=== PATIENT | female | born 2005 | race Two or more races ===

== ENCOUNTER 2024-10-15 11:11 | Emergency (ER) | payer MEDICAID, SELFPAY ==
[2024-10-15 11:33] VITALS: BP 114/68; PULSE 78; RESP 18; TEMP 36.8; O2SAT 98; BMI 27.5
--- NOTE | 2024-10-15 11:54 | EDNOTE_ITS ---
<Statement entered by Hailey Weathers MD - 10/15/24 16:02> As co-signing physician, I was present and available for consult prn. I concur with the plan and care as documented by the midlevel provider. ED Abdominal Pain RME/HPI General Chief Complaint: Abdominal Pain Stated complaint: ABD PAIN X AM; 10 WKS Time seen by provider: 10/15/24 11:21 Arrival date/time: 10/15/24 11:11 RME / HPI RME / HPI narrative: 18-year-old female patient with no significant past medical history, 2 para 1, about 10 weeks , came in for evaluation regarding pelvic pain. Onset of symptoms since earlier today as pelvic pain, severity 7 out of 10 nonradiating. Patient denies any vaginal spotting, fever, dysuria, vomiting, diarrhea or constipation. Denies any other complaints no medications taken sergio or to arrival. Related Data Home Medications ?Medication ?Instructions ?Recorded ?Confirmed prenat.vits,lucy,wys-sdge-vgobd 1 tab PO QDAY 03/25/22 06/26/22 Allergies Allergy/AdvReac Type Severity Reaction Status Date / Time No Known Allergies Allergy Verified 10/15/24 11:14 Review of Systems Review of Systems Narrative Review of Systems: Review of system reviewed and within normal limits except mentioned in HPI ED Exam Narrative Physical exam: VITAL SIGNS: Reviewed. GENERAL APPEARANCE: Alert and interactive, follows commands, no acute distress, HEAD AND FACE: Non-traumatic. ENT: PERRL, pink conjunctivitis, eyelid no trauma, Mucous membrane moist. NECK: Supple, nontender, no nuchal rigidity. CHEST: No tenderness, no crepitus, no paradoxical movement, no retractions. LUNGS: Clear, well ventilated, symmetric, no rales, no wheezing, no ronchi, no stridor, good breath sounds bilaterally. HEART: Regular rate, regular rhythm, no murmur, no gallops. ABDOMEN: Soft, positive bowel sounds, nondistended, no guarding, nontender, no rebound, no masses, RECTAL: Deferred. GENITAL: Pelvic tenderness, NEUROLOGICAL: Gross motor function intact sensory function intact, Appropriate for age. MUSCULOSKELETAL: low back nontender, full range of motion. EXTREMITIES: Nontender, full range of motion. SKIN: Color pink, dry, no rash, no lacerations, no abrasions, no contusions. LYMPHATICS: Deferred. Course Quality Measures none Orders Category Date Time Status US OB <= 14 weeks fetus Stat Exams 10/15/24 11:54 Completed ABO/RH Type Stat Lab 10/15/24 12:43 Completed Basic Metabolic Panel Stat Lab 10/15/24 12:43 Completed Beta HCG,Quantitative Stat Lab 10/15/24 12:43 Completed CBC Stat Lab 10/15/24 12:43 Completed Urinalysis Stat Lab 10/15/24 12:45 Completed Vital Signs Vital signs: Vital Signs Temperature 98.3 F 10/15/24 11:33 Pulse Rate 78 10/15/24 11:33 Respiratory Rate 18 10/15/24 11:33 Blood Pressure 114/68 10/15/24 11:33 Pulse Oximetry (%) 98 10/15/24 11:33 Oxygen Delivery Method Room Air 10/15/24 11:33 Abdominal Pain MDM MDM Narrative MDM Narrative:: 18-year-old female patient with no significant past medical history, 2 para 1, about 10 weeks , came in for evaluation regarding pelvic pain. Onset of symptoms since earlier today as pelvic pain, severity 7 out of 10 nonradiating. Patient denies any vaginal spotting, fever, dysuria, vomiting, diarrhea or constipation. Denies any other complaints no medications taken prior to arrival. Laboratory couple came back unremarkable urinalysis no UTI ultrasound showed single live intrauterine gestation about 13 weeks. With a small subchorionic hemorrhage results discussed with the patient. No bleeding prior to discharge. Patient is having no complaints prior to discharge. Patient data External records reviewed:: None Clinical information provided by:: patient and family Social determinants that could affect healthcare access:: none Patient has the following chronic illnesses:: None How is presenting disease/condition affected by chronic disease/condition?: no chronic disease Evaluation data The following diagnostics were reviewed and interpreted by me:: lab results and radiology exam(s) Lab and/or radiology exams considered but not ordered:: None Interpretation Summary: See results in MDM Medications / Prescriptions Medications or Prescriptions considered but not ordered:: None Medication administrations:: None Consultations Consultation(s) initiated? (list below): No Diagnosis Differential diagnosis abdominal pain: abdominal pain and other (Pelvic pain, ) Most likely diagnosis given after review of the tests above:: Pelvic pain, Admission Indicated Admission indicated?: not indicated Admission Request Was there a request for admission?: No Disposition Plan Disposition Plan: Discharge Discharge Attestation Discharge Attestation: The patient and all family members were given an opportunity to ask questions and understood the discharge instructions. Discharge instructions specifically effects, indications for sooner follow up or return to the emergency department, and the expected course of current diagnosis. Patient condition: Stable Discharge Plan Plan Patient Disposition: HOME (Self Care) Disposition Comment: Stable Prescriptions/Referrals Prescriptions/Med Rec: No Action Vitamin Tablet 1 tab PO QDAY Referrals: No Primary/Family,Physician [Primary Care Provider] - In 1 week Problem List Clinical Impression: Pelvic pain, Patient/Caregiver Discharge Instructions Discharge Activity: activity as tolerated Education Materials: ED Pelvic Pain, Unknown Cause Additional Instructions: Thank you for the opportunity for serving you today. You are stable for discharged . You are advised to: Follow-up with your SUPERVISOR OVENS in 1 to 2 days Return to ED for worsening of symptoms Increase oral fluids Print Language: Yakut Stand Alone Forms: Trudy Award Info., Patient Portal Info Letter CAIT/REMEDIOS Supervising Physician BATOOL Supervising Physician: MD Jasiel
--- NOTE | 2024-10-15 11:54 | XR_ITS ---
Examination: Complete OB ultrasound, less than 14 weeks, transabdominal Date and time of exam: October 07, 2024 at 1220 hours INDICATIONS: Onset pelvic pain today Technique: Obstetrical ultrasound images less than 14 weeks performed via transabdominal imaging Findings: A normal shaped single intrauterine gestation is present in the uterus. pole 6.7 cm corresponds to 13 weeks 0 day gestational age Cardiac motion 153 BPM Subchorionic hemorrhage 24 x 8 x 21 mm Ultrasonographic survey of visible structures unremarkable. Amniotic fluid volume appears appropriate for this estimated gestational age. Right ovary 2.8 cm arterial flow Left ovary 2.5 cm arterial flow, sodium 12 mm cyst IMPRESSION:. Viable intrauterine gestation 13 weeks 0 days Recommend short-term follow-up transvaginal pelvic sonography, given the subchorionic hemorrhage
[2024-10-15 12:52] LABS: Collection Type, Urine Clean Catch
[2024-10-15 12:56] LABS: Basophils % (Auto) 0 % (0-2.5); Eosinophils # (Auto) 0.1 Thou/mm3 (0.0-0.5); Eosinophils % (Auto) 1 % (0-10); Hemoglobin 13.4 g/dL (12.0-16.0); Immature Granulocytes % (Auto) 0 % (0-0); Immature Granulocytes Auto 0.03 Thou/mm3 (0.00-0.00); Lymphocytes # (Auto) 2.4 Thou/mm3 (1.0-5.0); Lymphocytes % (Auto) 24 % (10-50); Mean Corpuscular HGB Conc 34.4 g/dl (31.0-37.0); Mean Corpuscular Hemoglobin 27.5 pg (25.0-35.0); Mean Corpuscular Volume 80 fL (80-100); Monocytes # (Auto) 0.6 Thou/mm3 (0.0-0.8); Monocytes % (Auto) 6 % (0-12); Neutrophils # (Auto) 6.7 Thou/mm3 (1.8-7.7); Neutrophils % (Auto) 69 % (37-80); Nucleated Red Blood Cell % 0 /100 WBC (0); Platelet Count 245 Thou/mm3 (140-440); RDW Standard Deviation 44.2 fL (36.4-46.3); Red Blood Count 4.87 Miln/mm3 (4.00-5.20); White Blood Count 9.7 Thou/mm3 (4.5-11.0)
[2024-10-15 13:03] LABS: Bacteria,Urine Rare; Bilirubin,Urine Negative (Negative); Blood,Urine Negative (Negative); Color,Urine Lt-Yellow (Lt Yel-Yel); Glucose, Urine Negative (Negative); Ketones,Urine Negative (Negative); Leukocyte Esterase,Urine Positive (Negative); Nitrite,Urine Positive (Negative); PH,Urine 7.5 (5.0-7.0); Protein,Urine Negative (Neg - Trace); RBC,Urine 3 /hpf (0-3); Specific Gravity,Urine 1.016 (1.001-1.035); Squamous Epithelial Cell,Urine 3 /hpf (0-5); Urobilinogen,Urine Negative mg/dL (0.0-1.0); WBC,Urine 3 /hpf (0-5)
[2024-10-15 13:17] LABS: Anion Gap 9 (7-16); BUN/Creatinine Ratio 10 Ratio (12-20); Blood Urea Nitrogen < 5 mg/dL (9-23); Calcium 9.2 mg/dL (8.3-10.6); Chloride 106 mMol/L (98-107); Creatinine (Component) 0.5 mg/dL (0.6-1.3); Estimated Creatinine Clearance 163.9 mL/min (>60); Glucose 87 mg/dL (74-106); Osmolality,Calculated 268 (275-295); Potassium 4.6 mMol/L (3.4-5.1); Sodium 136 mMol/L (136-145); eGFR > 60 See Note
[2024-10-15 13:31] LABS: Clarity,Urine Hazy (Clear/Hazy)
[2024-10-15 15:18] LABS: Beta HCG,Quantitative 28205 mIU/mL (<5.0)
== END 2024-10-15 16:35 | disposition home or self-care (01) ==
PROVIDERS: Nurse Practitioner Family; Emergency Provider Emergency Medicine
DX: O26.891 Other specified pregnancy related conditions, first trimester (principal); O20.8 Other hemorrhage in early pregnancy; R10.2 Pelvic and perineal pain; Z3A.13 13 weeks gestation of pregnancy
CPT/HCPCS: 36415; 76801; 80048; 81001; 84702; 85025; 86900; 86901; 99284

== ENCOUNTER 2025-03-22 21:01 | Observation (INO) | payer MEDICAID, SELFPAY ==
[2025-03-22 21:13] VITALS: BMI 32.3
[2025-03-22 21:18] VITALS: BP 118/79; PULSE 102; RESP 18; RESP 97; TEMP 36.7
[2025-03-22 21:19] VITALS: BP 118/79; PULSE 102
[2025-03-22 21:31] VITALS: BP 99/55; PULSE 77
[2025-03-22 21:38] VITALS: BP 113/60; PULSE 92
[2025-03-22] MEDS: ACETAMINOPHEN 500 MG TABLET 1000 MG PO (21:46)
== END 2025-03-22 23:10 | disposition home or self-care (01) ==
PROVIDERS: Admitting Provider Obstetrics & Gynecology; Visit Provider Obstetrics & Gynecology
DX: O26.893 Other specified pregnancy related conditions, third trimester (principal); Z3A.36 36 weeks gestation of pregnancy; R51.9 Headache, unspecified
CPT/HCPCS: 59025; 59899; G0378; A9270

== ENCOUNTER 2025-04-15 13:40 | Observation (INO) | payer MEDICAID, SELFPAY ==
[2025-04-15] VITALS (16 sets, daily range): BP systolic 108; BP diastolic 76; PULSE 70–102; RESP 20–97; TEMP 36.7; O2SAT 95–97; BMI 35.4
--- NOTE | 2025-04-15 14:17 | XR_ITS ---
Examination: Complete OB ultrasound greater than 14 weeks Date and time of exam: April 09 12/25/2024, 1505 hours INDICATIONS: Decreased movement beginning 2 days ago, labor evaluation Findings: Viable intrauterine single fetus with single amniotic sac presentation cephalic spine maternal right Cardiac motion 136 BPM Placenta fundal posterior grade 2 Umbilical cord insertion seen Amniotic fluid index 6.2 cm Cervix 3.5 cm closed Ovaries obscured by the fetus. Composite estimated gestational age based on BPD, head circumference, abdominal circumference, femur length is 37 weeks 3 days Estimated weight 3257.5 g. Survey of intracranial anatomy, spinal anatomy, abdominal anatomy, four-chamber heart performed with no abnormalities identified. Impression: Viable intrauterine gestation cephalic presentation.
--- NOTE | 2025-04-15 14:17 | XR_ITS ---
Examination: Biophysical profile, ultrasound Date and time of exam: April 15, 2025 1524 hours INDICATIONS: Decreased movement beginning 2 days ago, labor evaluation Technique: Multiple transabdominal sonographic images of the pelvis abdomen obtained. Attention is directed to the breathing movement, gross body movement, amniotic fluid volume and tone. Findings: Amniotic fluid index 6.8 cm Total biophysical profile is 8 of 8. breathing movement is 2. Gross body movement is 2. tone is 2. Qualitative amniotic fluid volume is 2 Impression: Biophysical profile is 8 of 8.
== END 2025-04-15 16:33 | disposition home or self-care (01) ==
PROVIDERS: Admitting Provider Obstetrics & Gynecology; Visit Provider Obstetrics & Gynecology
DX: O36.8130 Decreased fetal movements, third trimester, not applicable or unspecified (principal); Z3A.40 40 weeks gestation of pregnancy
CPT/HCPCS: 59025; 59899; 76805; 76819

== ENCOUNTER 2025-04-20 10:39 | Inpatient (IN) | payer MEDICAID, SELFPAY ==
[2025-04-20] VITALS (78 sets, daily range): BP systolic 79–147; BP diastolic 6–85; PULSE 67–110; RESP 16–98; TEMP 36.6–37.1; O2SAT 78–100; BMI 32.5
[2025-04-20 11:57] LABS: Basophils # (Auto) 0.0 Thou/mm3 (0.0-0.2); Basophils % (Auto) 0 % (0-2.5); Eosinophils # (Auto) 0.0 Thou/mm3 (0.0-0.5); Eosinophils % (Auto) 0 % (0-10); Hematocrit 40.8 % (36.0-46.0); Hemoglobin 14.0 g/dL (12.0-16.0); Immature Granulocytes Auto 0.03 Thou/mm3 (0.00-0.00); Lymphocytes # (Auto) 3.0 Thou/mm3 (1.0-4.8); Lymphocytes % (Auto) 27 % (10-50); Mean Corpuscular HGB Conc 34.3 g/dl (31.0-37.0); Mean Corpuscular Hemoglobin 28.9 pg (25.0-35.0); Mean Corpuscular Volume 84 fL (80-100); Monocytes # (Auto) 0.6 Thou/mm3 (0.0-0.8); Monocytes % (Auto) 6 % (0-12); Neutrophils # (Auto) 7.3 Thou/mm3 (1.8-7.7); Neutrophils % (Auto) 67 % (37-80); Nucleated Red Blood Cell # 0.00 Thou/mm3 (0.00-0.00); Nucleated Red Blood Cell % 0 /100 WBC (0); Platelet Count 230 Thou/mm3 (140-440); RDW Standard Deviation 48.0 fL (36.4-46.3); Red Blood Count 4.85 Miln/mm3 (4.00-5.20); White Blood Count 11.0 Thou/mm3 (4.5-11.0)
[2025-04-20 12:41] LABS: Syphilis Nonreactive (Nonreactive)
--- NOTE | 2025-04-20 12:44 | ESHP_ITS ---
Documentation for date of: 04/20/25 OB Labor/Induct. HPI History of Present Illness Chief complaint: Labor and ruptured membranes at 0500 today : 2 Para: 1 Term pregnancies: 1 pregnancies: 0 Living children: 1 History of Abortions: Spontaneous and Elective: 0 History of Vaginal deliveries: 0 History of sections: No History of : No RADHA: 04/15/25 Gestational Age (weeks): 40 Gestational Age (days): 5 History of present illness: Patient is a 19-year-old -0-0-1 with all care uncomplicated with [facility] who presented to triage 5 cm dilated and 40-5/7 weeks. She was admitted in labor. She had broken her bag water this morning at 5 AM and reported clear fluids. Patient was found to be grossly ruptured. History of Present Dating criteria: LMP confirmed by 2nd trimester US Adequate Care: Yes Ultrasounds: normal mid trimester US Obstetrical complications: none Medical complications: none Labs Maternal Blood Type: O Pos Labs: Negative: RPR, Hepatitis B, Rubella Titre, HIV, Chlamydia, Gonorrhea and Group Beta Strep and Unknown: Herpes Type 1 and Herpes Type 2 Review of Systems Constitutional Comments: Patient reports painful contractions. No loss of fluids or vaginal bleeding. Past Medical History Surgical History SURGICAL: Negative Section Past Medical History Comments PMH COMMENT: No significant past medical history including asthma diabetes hypertension Past vaginal delivery in 2021 Meds Home Medications and Allergies Home Medications ?Medication ?Instructions ?Recorded ?Confirmed ?Type prenat.vits,lucy,lto-avje-kefke 1 tab PO QDAY 03/25/22 04/20/25 History Allergies Allergy/AdvReac Type Severity Reaction Status Date / Time No Known Allergies Allergy Verified 04/20/25 11:59 OB Exam Physical Exam Vital signs: Temp Pulse Resp BP Pulse Ox 98.0 F 93 16 122/83 100 04/20/25 10:40 04/20/25 12:44 04/20/25 10:40 04/20/25 12:44 04/20/25 12:41 Detailed Labor and Delivery Exam Effacement (%): 80 Cervix position: mid station: -2 Consistency: medium Presentation: Vertex Membranes: intact and ruptured monitor accelerations: 15x15 monitor decelerations: None skilled nursing variability: Moderate (11-25) Tachysystole: No Contraction intensity: Moderate OB Results Labs 04/20/25 11:25 Labs: Short CBC 04/20/25 Range/Units 11:25 WBC 11.0 (4.5-11.0) Thou/mm3 Hgb 14.0 (12.0-16.0) g/dL Hct 40.8 (36.0-46.0) % Plt Count 230 (140-440) Thou/mm3 OB Assessment & Plan Assessment and Plan (1) Supervision of high risk in third trimester: Status: Acute Assessment and plan: Admit patient. Okay for epidural. Pitocin augmentation if needed. Additional Plan Induction method: none Plan: anticipate NVD
[2025-04-20] MEDS: BENZO/LANO/ALOE (Dermoplast) 60 GM CAN 1 SPRAY TOP (13:45)
[2025-04-20] MEDS: OXYTOCIN in NS 20 units 20 UNIT/1,000 ML BAG 125 UNIT IV (13:46)
[2025-04-20] MEDS: LIDOCAINE HCL 1% 20 ML VIAL INFL (13:46)
[2025-04-20] MEDS: METHYLERGONOVINE INJ 0.2 MG/ML VIAL IM (14:05)
[2025-04-20 15:51] LABS: Amphetamine/Metham Scrn,Ur OB Negative (Negative); Benzoylecgonine Screen, Ur OB Negative (Negative); Opiate Screen,Urine OB Negative (Negative); THC Screen,Urine OB Negative (Negative)
--- NOTE | 2025-04-20 19:12 | PD.LDDELS ---
Data ([facility]) Data Hx Section: No Maternal Blood Type: O Pos Rubella Titre: Positive RPR: Non-reactive Labs: Negative: RPR, Hepatitis B, HIV, Chlamydia, Gonorrhea and Group Beta Strep : 2 Term: 1 : 0 Livin Abortions: Spontaneous & Theraputic: 0 Delivery Data ([facility]) Labor Data Initiation of labor: Spontaneous Induction/Augmentation Agent: None ROM date: 04/20/25 ROM time: 05:00 Amniotic membrane rupture type: Spontaneous Amniotic fluid description: Clear Delivery Data EDC: 04/15/25 EDC calculated by:: other (LMP/second trimester US) Date of arrival to unit: 04/20/25 Onset of labor date: 04/20/25 Onset of labor time: 10:35 Complete dilation date: 04/20/25 Complete dilation time: 13:07 delivery date: 04/20/25 delivery time: 13:16 Placenta delivery date: 04/20/25 Placenta delivery time: 13:22 Stage 1 total time: Labor - Stage 1 Duration 2 hours and 32 minutes Delivered by: Alessandra Richardson ([facility]) Delivery nurse: POOJA Arnett Neworn nurse: Raúl Wilde RN [employer] Representative at delivery: No Support person(s) at delivery: None Other staff at delivery: POOJA Josueit operations analyst Method Delivery method: Normal Vaginal Delivery Presentation: Vertex position: OA Anesthesia Type Anesthesia Type: Local and Epidural Delivery Room Medications Delivery room medications: Pitocin 20 u IV Placenta Placenta delivery description: Spontaneous Cord blood sent to lab: Yes cord blood collection: Cord Blood Type Episiotomy Episiotomy description: None Lacerations #1: Perineal: 1st degree Perineal repair Sutures used for repair: other (2-0 chromic) EBL Estimated blood loss (ml): 100 Umbilical Cord cord description: Nuchal Cord and Loose Additional Procedures Patient is a 19-year-old -0-0-1 with all care uncomplicated with [facility] who presented to labor and delivery in active labor 5 cm and ruptured around 10:30 in the morning. She was admitted and had labor epidural placed. She felt pressure soon after epidural was placed and was checked around 1300 and patient was complete. She was complete at 1307 and began pushing shortly thereafter. She delivered a liveborn male at 1316. The patient only pushed through 2-3 contractions. Findings: liveborn male in the JORGE L presentation with a loose nuchal cord x 1 no meconium. Apgars were 8 and 9. Weight was 8 pounds 11 ounces. As baby was vigorous at , he was placed directly on mother's chest and delayed cord clamping was performed for 2 minutes. The cord was then clamped and cut and the baby stayed on mother's chest. The placenta was complete spontaneous grossly normal delivering at 1322. Patient sustained a small first-degree perineal laceration repaired in standard fashion using 2-0 chromic. Complications were none. Condition: Both mom and were in stable condition in the delivery room. EBL was 100 cc. Complications Complications: None [place] Data ([facility]) [place] Data order: 1 's gender: Male Identification band number: [id number] weight (gms): 3935 g Weight (pounds): 8 lbs and 10.8 ozs length: 52.07 cm 1 minute: 8 5 minutes: 9
[2025-04-20 19:53] LABS: Basophils # (Auto) 0.0 Thou/mm3 (0.0-0.2); Basophils % (Auto) 0 % (0-2.5); Eosinophils # (Auto) 0.0 Thou/mm3 (0.0-0.5); Eosinophils % (Auto) 0 % (0-10); Hematocrit 38.5 % (36.0-46.0); Hemoglobin 12.9 g/dL (12.0-16.0); Immature Granulocytes Auto 0.04 Thou/mm3 (0.00-0.00); Lymphocytes # (Auto) 2.0 Thou/mm3 (1.0-4.8); Lymphocytes % (Auto) 13 % (10-50); Mean Corpuscular HGB Conc 33.5 g/dl (31.0-37.0); Mean Corpuscular Hemoglobin 28.2 pg (25.0-35.0); Mean Corpuscular Volume 84 fL (80-100); Monocytes # (Auto) 1.1 Thou/mm3 (0.0-0.8); Monocytes % (Auto) 7 % (0-12); Neutrophils # (Auto) 12.2 Thou/mm3 (1.8-7.7); Neutrophils % (Auto) 79 % (37-80); Nucleated Red Blood Cell # 0.00 Thou/mm3 (0.00-0.00); Nucleated Red Blood Cell % 0 /100 WBC (0); Platelet Count 227 Thou/mm3 (140-440); RDW Standard Deviation 48.1 fL (36.4-46.3); Red Blood Count 4.57 Miln/mm3 (4.00-5.20); White Blood Count 15.3 Thou/mm3 (4.5-11.0)
[2025-04-20] MEDS: DOCUSATE SOD 100 MG CAPSULE PO (20:27)
[2025-04-21 03:30] VITALS: BP 108/68; PULSE 84; RESP 16; TEMP 36.9; O2SAT 97
[2025-04-21] MEDS: IBUPROFEN TAB 400 MG TABLET 800 MG PO (03:41)
[2025-04-21 08:13] VITALS: BP 105/74; PULSE 79; RESP 17; TEMP 36.7; O2SAT 97
[2025-04-21] MEDS: DOCUSATE SOD 100 MG CAPSULE PO (08:19)
[2025-04-21 11:35] VITALS: BP 115/78; PULSE 67; RESP 18; TEMP 36.7; O2SAT 97
--- NOTE | 2025-04-21 12:53 | PC.SS ---
SS conducted bedside contact with the patient to address nursing referral indicating patient possessed late to care at 16 weeks. SS introduced self and role. Patient?s aunt, Hope, was at bedside.? Patient is Sinhala speaking only. Conductor Sleeping Car line used during discussion/assessment.? Patient was agreeable speaking in front . SS discussed basis for referral.? SS received referral for late to care at 16 weeks. Patient confirmed late to care. Patient states she was living in [place] at the time.? She had no access to insurance coverage then went to see OB services at [facility] with Efraín Montana CNM.? Patient ?states she has one other child, 3 year old boy, Cristofer.? Patient had baby boy, Kyle.? Patient delivered baby natural on 04/20/25. FOB is involved but does not reside with patient. FOB is Juan Urr[place]ia.? Patient is aligned with WIC and SNAP. Patient does not possess [employer]. Patient has access to a car seat. Patient has access to appropriate supplies and equipment. Patient?s aunt will provide transportation. Patient denies any history of alcohol/drug abuse, domestic violence or mental illness.? Patient denies CWS intervention. information services manager provided resources to include:? Parenting Network, Warm Line and community numbers. No further intervention required at this time.? information services manager will be available to address any further concerns.? SS updated bedside nurse.
--- NOTE | 2025-04-21 12:56 | PD.LDPPPRG ---
Subjective Subjective Interval history: Delivery type: Patient doing well this morning. No acute complaints. Ambulating, tolerating p.o. and voiding without difficulty. HTN/Pre-Eclampsia screen: No chest pain, shortness of breath, headache, visual changes, epigastric or right upper quadrant pain. Breast-feeding, lochia diminishing. Bowel: Flatus+/ BM+ Exam Vital Signs Temp Pulse Resp BP Pulse Ox O2 Del Method 98.0 F 67 18 115/78 97 Room Air 04/21/25 11:35 04/21/25 11:35 04/21/25 11:35 04/21/25 11:35 04/21/25 11:35 04/21/25 11:35 Constitutional Constitutional: no acute distress Routine HEENT Exam Head: Present normocephalic and atraumatic Eye: Present EOMI and PERRL ENT: Present mucous membranes moist Routine Neck Exam Neck: Present supple and trachea midline Routine Respiratory Exam Respiratory: Present chest non-tender, lungs clear, normal breath sounds and no resp distress Routine Cardiovascular Exam Cardiovascular: Present RRR Routine Abdominal Exam Abdominal: Present soft and normoactive bowel sounds Routine Extremities Exam Extremities: Present full ROM Routine Skin Exam Skin: Present intact, dry and warm Routine Neurological Exam Neurological: Present alert, oriented X3 and CN II-XII intact Routine Psychiatric Exam Psychiatric: Present normal affect and normal thought process Objective Labs 04/20/25 19:30 Labs: Laboratory Results - last 24 hr 04/20/25 04/20/25 15:00 19:30 WBC 15.3 H RBC 4.57 Hgb 12.9 Hct 38.5 MCV 84 MCH 28.2 MCHC 33.5 RDW Std Deviation 48.1 H Plt Count 227 Neut % (Auto) 79 Lymph % (Auto) 13 [place] % (Auto) 7 Eos % (Auto) 0 Baso % (Auto) 0 Neut # (Auto) 12.2 H Lymph # (Auto) 2.0 [place] # (Auto) 1.1 H Eos # (Auto) 0.0 Baso # (Auto) 0.0 Immature Gran # (Auto) 0.04 H Absolute Nucleated RBC 0.00 Immature Gran % 0 Nucleated RBC % 0 Urine Opiates Screen Negative U Amphetamin/Meth Scrn Negative U Cocaine Metab Screen Negative U Marijuana (THC) Screen Negative Assessment & Plan Problem List (1) Supervision of high risk in third trimester: Status: Acute (2) Normal vaginal delivery: Status: Acute Assessment and plan: 1. Continue routine /post-op care 2. Labs reviewed, cbc appropriate 3. Remove dressing/Hernandez 4. Encourage to ambulate, shower 5. Encourage PO intake, breast feeding Time Spent With Patient Time: Total time spent is greater than 50% in coordination of care (as documented) at patient's floor/unit and/or counseling patient:
--- NOTE | 2025-04-21 14:29 | PD.LDDS ---
DS: Providers Provider Date of admission: 04/20/25 11:17 Primary care physician: Physician No Primary/Family Admitting Provider: Alessandra Richardson MD ([facility]) Attending Provider on Admission: Gerson Venegas MD Consults: 04/20/25 13:35 Referral Routine Comment: Attending Provider on DC: Gerson Venegas MD Discharging Provider: Gerson Venegas MD DS: Diagnosis Discharge Diagnosis (1) Normal vaginal delivery: Status: Acute (2) Supervision of high risk in third trimester: Status: Acute Problem List Completed Was Problem List Reviewed/Reconciled?: Yes Summary/Hosp Course Brief History: Patient is a 19-year-old -0-0-1 with all care uncomplicated with [facility] who presented to triage 5 cm dilated and 40-5/7 weeks. She was admitted in labor. She had broken her bag water this morning at 5 AM and reported clear fluids. Patient was found to be grossly ruptured. Peripartum Data Delivery Method: Normal Vaginal Delivery Episiotomy Description: None Time Spent with Patient Time attestation: Total time spent providing and/or coordinating discharge services: Exam Vital Signs Temp Pulse Resp BP Pulse Ox O2 Del Method 98.0 F 67 18 115/78 97 Room Air 04/21/25 11:35 04/21/25 11:35 04/21/25 11:35 04/21/25 11:35 04/21/25 11:35 04/21/25 11:35 Discharge Plan Plan Patient Disposition: HOME (Self Care) Patient condition on transfer: Stable Prescriptions/Referrals Prescriptions/Med Rec: New docusate sodium [Stool Softener] 100 mg capsule 100 mg PO QDAY 30 Days Qty: 30 0RF ibuprofen 600 mg tablet 600 mg PO Q6H MDD 4 PRN (Reason: fever or pain) 10 Days Qty: 40 0RF Continued prenat.vits,lucy,fca-aycp-roydx Tablet 1 tab PO QDAY Referrals: Gerson Venegas MD [Physician, INSTRUCTOR WEAVING] No Primary/Family,Physician [Primary Care Provider] Patient/Caregiver Discharge Instructions Meds to Beds: Yes Print Language: Mohawk Stand Alone Forms: Trudy Award Info., Patient Portal Info Letter Discharge Order Discharge Orders: Discharge (Routine); Ordered 04/21/25 Ordered By: Gerson Venegas Planned Discharge Date 04/21/25
== END 2025-04-21 16:00 | disposition home or self-care (01) | DRG 560 ==
LOC: S4SX 13:35 → S4NX 16:22
PROVIDERS: Admitting Provider Obstetrics & Gynecology; Visit Provider Obstetrics & Gynecology
DX: O42.02 Full-term premature rupture of membranes, onset of labor within 24 hours of rupture (principal); O48.0 Post-term pregnancy; Z3A.40 40 weeks gestation of pregnancy; Z37.0 Single live birth; O69.81X0 Labor and delivery complicated by cord around neck, without compression, not applicable or unspecified; O70.0 First degree perineal laceration during delivery
CPT/HCPCS: 36415; 59025; 59409; 80307; 84112; 85025; 86780; 86850; 86900; 86901; 94762; J2210; J2590; J2795; J3010; J3490; A9270